=== PATIENT | female | born 1950 | race Caucasian/White ===

== ENCOUNTER 2016-10-10 09:19 | Outpatient (CLI) | payer OTHER ==
--- NOTE | 2016-10-10 10:42 | DIAGNOSTIC IMAGING REPORT ---
PROCEDURE: CT LOW-DOSE LUNG CA SCREENING CLINICAL INDICATION: LUNG CA SCREENING TECHNIQUE: Low-dose helical CT images of the lungs without contrast were obtained and reconstructed at 2.5 mm intervals. MIP reformations in coronal and sagittal planes were created. Radiation dose mGy. COMPARISON: Oldest available comparison: None FINDINGS: NODULES: Location: Right upper lobe, image location: 17, size 1 mm, composition: Non solid. Location: Right major fissure, image location: 31, size: 2.5 mm, composition: Non solid OTHER LUNG FINDINGS: Mild emphysema. Focal right pleural thickening (images 31 - 35). Mild right apical scarring. AIRWAY: Branches normally without narrowing or endobronchial nodule. PLEURA: No effusions, thickening, or pneumothorax. AORTA AND GREAT VESSELS: Normal caliber, mild atherosclerotic calcification. PULMONARY ARTERIES: Normal. . HEART AND PERICARDIUM: Normal size without effusion, thickening. Coronary atherosclerosis. LYMPH NODES: No enlarged nodes visible. THORACIC SPINE: No suspicious lesion. Mild degenerative changes. CHEST WALL: Normal. VISUALIZED UPPER ABDOMEN: Normal. IMPRESSION: 1. Category 2. Two benign appearing right upper lobe nodules. Recommend annual screening with LDCT in 12 months 2. Emphysema 3. Focal right pleural thickening. Consider scar versus asbestosis. Correlate clinically. All CT scans at this facility use dose modulation, iterative reconstruction, and/or weight-based dosing when appropriate to reduce radiation dose to as low as reasonably achievable.
== END 2016-10-10 23:00 ==
LOC: CT SRH 09:19
DX: J43.9 Emphysema, unspecified (principal); J92.9 Pleural plaque without asbestos; F17.200 Nicotine dependence, unspecified, uncomplicated